=== PATIENT | male | born 1990 | race Caucasian/White ===

== ENCOUNTER 2022-04-04 16:12 | Emergency (ER) | payer OTHER, SELFPAY ==
[2022-04-04 16:24] VITALS: BP 152/102; PULSE 100; RESP 16; TEMP 36.9; O2SAT 100
--- NOTE | 2022-04-04 16:36 | ED.EYEPROB ---
HPI - Eye Problem General Chief complaint: Eye Problems Stated complaint: left eye pain Time Seen by Provider: 04/04/22 16:37 Source: patient and RN notes reviewed Mode of arrival: ambulatory Limitations: no limitations History of Present Illness HPI Narrative: 31-year-old male presents to the [facility] with complaints of left eye pain after getting poked in the eye with a stick yesterday. Unknown last tetanus. No treatment prior to arrival Onset (ago): day(s) (1 ) Related Data Allergies Allergy/AdvReac Type Severity Reaction Status Date / Time dextromethorphan Allergy Mild Difficulty Unverified 04/04/22 16:59 Breathing Review of Systems Review of Systems: All systems reviewed & are unremarkable except as noted in HPI and below Constitutional: Constitutional: Reports no additional constitutional complaints, Denies chills and Denies fever(s) Eyes: Eyes: Reports as per HPI, Denies change in vision, Reports eye discharge, Reports irritation, Denies loss of vision, Denies other visual disturbances, Reports eye pain and Reports photophobia ENT: Reports system reviewed and no additional complaints, except as documented Cardiovascular: Cardiovascular: Reports no additional cardiovascular complaints Respiratory: Respiratory: Reports no additional respiratory complaints Gastrointestinal: Gastrointestinal: Reports no additional gastrointestinal complaints Musculoskeletal: Musculoskeletal: Reports no additional musculoskeletal complaints Integumentary/Breasts: Skin/Breast: Reports system reviewed and no additional complaints, except as docu Neurologic: Reports system reviewed and no additional complaints, except as documented Psychiatric: Psychiatric: Reports no additional psychiatric complaints Allergic/Immunologic: Allergic/Immunologic: Reports no additional allergic/immunologic complaints PMFSH Past Medical History Medical History (Updated 04/04/22 @ 19:55 by Cadnie Leal APRN) No significant medical problems Surgical History Surgical History (Updated 04/04/22 @ 19:52 by Candie Leal APRN) No pertinent past surgical history Social History Social History (Updated 04/04/22 @ 19:52 by Candie Leal APRN) Living arrangements: with friend(s) Gender identity (if verbalized by the patient): Male Comments At the time of my signature, I reviewed and agree with the nursing past medical, surgical, social, and family history. There is no relevant family history pertinent to the patient complaint. Exam Const: General: healthy appearing, no acute distress and alert Nutritional Appearance: well nourished Orientation/consciousness: patient oriented x3 Limitations: no limitations HENMT: Head: normal to inspection Ears: external ears normal General nose exam: Normal external nose present Eyes: General: appearance normal, both eyes and all related structures Visual Helm: normal visual helm by confrontation Alignment and Position: alignment normal Periorbital: periorbital findings abnormal left periorbital swelling; no tenderness, no erythema and no ecchymosis Eyelids: eyelid abnormality left upper eyelid lid margins crusty/scaly and swelling and left lower eyelid lid margins crusty/scaly and swelling Conjunctivae: conjunctival abnormality left conjunctival injection (With increased erythema) and discharge Cornea: corneas abnormal on the left fluorescein used and abrasion linear (At the 5:00 from pupil); with no foreign body noted and fluorescein used Pupils: Equal, round and reactive pupils present EOM: EOMs intact bilaterally Direct Ophthalmoscopy: photophobia Other: Fluorescein exam done, able to flip lids with no foreign body seen, no hyphema, no loss of vision. Neck: Neck: normal visual inspection, no lymphadenopathy and no meningeal signs Chest: Chest palpation & inspection: normal inspection of the chest Resp: Effort & Inspection: normal respiratory effort and no use of accessory muscle
[2022-04-04] MEDS: TETANUS,DIPHTHERIA,AC PERTUSSIS ADULT (0.5 ML) BOOSTRIX IM (17:02)
== END 2022-04-04 17:04 | disposition home or self-care (01) ==
PROVIDERS: Emergency Provider Nurse Practitioner
DX: S05.02XA Injury of conjunctiva and corneal abrasion without foreign body, left eye, initial encounter (principal); W22.8XXA Striking against or struck by other objects, initial encounter; H10.9 Unspecified conjunctivitis; Z23 Encounter for immunization
CPT/HCPCS: 90471; 90715; 99213; A9270; G0463